=== PATIENT | male | born 1935 | race Caucasian/White ===

== ENCOUNTER 2018-05-25 09:23 | Day surgery (SDC) | payer OTHER ==
[2018-05-21 10:39] VITALS: BMI 24.7
[2018-05-25] MEDS ORDERED: ONDANSETRON 4 MG/2 ML VIAL ONE (10:29)
[2018-05-25] MEDS: GENTAMICIN SULFATE 0.3% OPHTHALMIC (EYE DROPS) 5ML BOTTLE OD SCH ×5 (11:55→12:15)
[2018-05-25] MEDS: TROPICAMIDE 1% OPHTH SOLN 15 ML BOTTLE ONE ×5 (11:55→12:15)
[2018-05-25] MEDS: CYCLOPENTOLATE HCL 1% OPHTH SOLN 2 ML BOTTLE OD SCH ×5 (11:55→12:15)
[2018-05-25] MEDS: KETOROLAC TROMETHAMINE 0.5% EYE DROP 1 DROP DROPS OD SCH ×5 (11:55→12:15)
[2018-05-25] MEDS: PHENYLEPHRINE 2.5% OPHTH SOLN 15 ML BOTTLE OD SCH ×5 (11:55→12:15)
[2018-05-25] MEDS ORDERED: EPI-SHUGARCAINE (EPINEPHRINE 0.025% & LIDOCAINE-PF 0.75%) 4ML ONE (13:10)
[2018-05-25] MEDS ORDERED: POVIDONE-IODINE 5% OPHTHALMIC PREP 30 ML SOLUTION ONE (13:10)
[2018-05-25] MEDS ORDERED: ACETYLCHOLINE 1:100 INTRA-OCUL 20 MG/2 ML KIT ONE (13:10)
[2018-05-25] MEDS ORDERED: ACETAMINOPHEN 325 MG TABLET (FP) PO PRN (13:11)
[2018-05-25] MEDS ORDERED: MIDAZOLAM HCL 2 MG/2 ML SINGLE DOSE VIAL ONE (13:42)
[2018-05-25] MEDS ORDERED: TRYPAN BLUE 0.5 ML DISP.SYRIN ONE (13:52)
[2018-05-25] MEDS ORDERED: TROPICAMIDE 1% OPHTH SOLN 15 ML BOTTLE OD SCH (15:00)
[2018-05-25 15:02] VITALS: TEMP 98
[2018-05-25 15:50] VITALS: BP 141/86; PULSE 80
--- NOTE | 2018-05-25 17:33 | OP ---
DATE OF OPERATION: 05/25/2018 PREOPERATIVE DIAGNOSIS: Cataract, right eye. POSTOPERATIVE DIAGNOSIS: Cataract, right eye. PROCEDURE: Cataract extraction via phacoemulsification with insertion of posterior chamber lens implant, Toric lens, right eye. SURGEON: Franco Vasquez MD REGISTERED NURSE SURGICAL SERVICES: Franco Vasquez MD ANESTHESIA: Topical with sedation. ESTIMATED BLOOD LOSS: Less than 1 mL. COMPLICATIONS: None. SPECIMENS: None. PROCEDURE: The patient was identified in the holding area. After all risks, benefits, and alternatives were explained to the patient, informed consent was obtained. The right eye was marked with a marking pen. The patient then entered the operating room on an eye stretcher. After a formal timeout was performed, topical tetracaine eye drops were instilled onto the right eye. The patient was then instructed to sit up and look straight ahead at the wall and using a Toric bubble marker at the cardinal axis of astigmatism where I labeled on the cornea with a marking pen. Then, the patient was instructed to lay back down, and the right eye was then prepped and draped in the usual sterile fashion. An eyelid speculum was placed beneath the eyelids. A superotemporal paracentesis incision was created using a 15-degree blade, and the cornea was then marked for the axis of astigmatism which was noted to be 5 degrees using a Toric marking pen and a Toric supervisor dials. Then, topical preservative-free epinephrine and preservative-free lidocaine was then injected into the anterior chamber. Viscoelastic was injected into the anterior chamber. A 2.4-mm keratome blade was then used to make an infratemporal incision. A 360-degree continuous curvilinear capsulorhexis was then created using bent cystotome and Utrata forceps. Hydrodissection was performed using balanced saline solution on a cannula. Phacoemulsification was introduced to disassemble and remove the nucleus in its entirety. Irrigation/aspiration was then used to remove any remaining cortical material from the eye. The capsular bag was reformed using viscoelastic. An Vega model [id number] with a power of 25.0 diopters, serial number [id number] was inspected and found to be defect-free and injected into the capsular bag. Irrigation/aspiration was then used to remove any remaining viscoelastic from the eye. Then, using a combination of a Sinskey hook and the IA tip, the IOL was rotated so that the axis of astigmatism on the optic aligned with 5-degree tiffanie on the cornea and once the lens was perfectly centered and the lens was perfectly aligned with a 5 degree meridian on the cornea, intracameral injections of Miochol and Miostat were then administered. The pupil came down and was round. All wounds were hydrated with balanced saline solution and noted to be watertight. The anterior chamber was deep. There was a red reflex present. The eye had an adequate pressure, and the lens was perfectly centered in capsule bag with the axis of astigmatism on the optic aligned perfectly with a 5-degree meridian on the cornea. Topical antibiotic eye drops and ointment were then administered to the right eye. The eyelid speculum was removed from the right eye. The right eye was shielded. The patient tolerated the procedure well and left the operating room in stable condition to follow up in the eye clinic tomorrow morning at 10:00. Chris [id number]
== END 2018-05-25 15:40 | disposition home or self-care (01) ==
LOC: FASU 09:23
PROVIDERS: ATTEND Ophthalmology
PROC: 08RJ3JZ Replacement of Right Lens with Synthetic Substitute, Percutaneous Approach (ICD-10-PCS; principal; 2018-05-25 14:01)
DX: H26.9 Unspecified cataract (principal)